=== PATIENT | female | born 2000 | race Caucasian/White ===

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

== ENCOUNTER 2019-11-12 18:11 | Inpatient (IN) ==
[2019-11-12] MEDS ORDERED: PENICILLIN G POTASSIUM 5 MILLIONUNT in DEXTROSE 5 % IN WATER 100 ML IV ONE ×2 (18:13)
[2019-11-12] MEDS ORDERED: RINGER'S SOLUTION,LACTATED 1,000 ML IV ONE (19:25)
[2019-11-12] MEDS ORDERED: RINGER'S SOLUTION,LACTATED 1,000 ML IV PRN (19:25)
[2019-11-12] MEDS ORDERED: DEXTROSE 5%-LACTATED RINGERS 1,000 ML IV PRN (19:25)
[2019-11-12] MEDS ORDERED: ONDANSETRON 4 MG TAB.RAPDIS PO PRN (19:25)
[2019-11-12] MEDS ORDERED: OXYTOCIN/DEXTROSE 5%-WATER 30 UNITS/500 ML BAG IV ONE (19:25)
[2019-11-12 21:05] LABS: Cocaine Ur Negative (NEGATIVE); Urine Barbiturate Negative (NEGATIVE); Urine Benzodiazepines Negative (NEGATIVE); Urine Opiates Negative (NEGATIVE); Urine PCP Negative (NEGATIVE); Urine THC Negative (NEGATIVE)
[2019-11-12] MEDS ORDERED: BUPIVACAINE HCL/0.9 % NACL/PF 250 ML EP PRN (22:07)
[2019-11-12] MEDS ORDERED: NALOXONE HCL 1 MG/1 ML SYRG IV PRN (22:07)
[2019-11-12] MEDS ORDERED: ONDANSETRON HCL/PF 2 MG/ML VIAL IV PRN (22:07)
[2019-11-12] MEDS ORDERED: BUPIVACAINE HCL/PF 30 ML VIAL EP SCH (22:15)
--- NOTE | 2019-11-12 22:50 | ANES ---
Anesthesia Pre Procedure Eval Vitals/Labs: Last Vital Signs Temp 37.3 C 11/12/19 21:01 Pulse 84 11/12/19 21:01 Resp 18 11/12/19 21:01 BP 121/71 11/12/19 21:01 Pulse Ox 98 11/12/19 21:01 HOME MEDICATIONS prenat.vits,zoie,[id number] 1 tab PO DAILY 05/04/19 [Last Taken 11/12/19] acetaminophen 325 mg tablet 650 mg PO Q6H PRN tab 08/10/19 [Last Taken 11/12/19] Allergies/Adverse Reactions: Allergies Allergy/AdvReac Type Severity Reaction Status Date / Time No Known Allergies Allergy Verified 11/12/19 18:36 - Planned Procedure Planned Procedure: LABOR Medication List Reviewed:: Yes Allergies Verified: Yes Medical History (Last Reviewed 11/12/19 @ 18:58 by Janie Woodall RN) Anemia Onset Date: 08/10/19 Tattoos Onset Date: Unknown Body piercing Onset Date: Unknown Reactive airway disease Onset Date: Unknown Asthma Onset Date: Unknown sports induced Surgical History (Last Reviewed 11/12/19 @ 18:58 by Janie Woodall, RN) No pertinent past surgical history Family History (Last Reviewed 11/12/19 @ 18:58 by Janie Woodall RN) Mother Environmental allergies - Anesthesia Assessment and Plan ASA Class: PS, II Anesthesia Type Plan: Epidural
--- NOTE | 2019-11-12 23:09 | ANES ---
Post Anesthesia Assessment - Vital Signs Vitals: Last Vital Signs Temp 37.2 C 11/12/19 23:07 Pulse 89 11/12/19 23:07 Resp 18 11/12/19 23:07 BP 128/69 11/12/19 23:07 Pulse Ox 97 11/12/19 23:07 Airway Patency: Normal - Mental Status Level Of Consciousness: Awake - N/V Assessment Nausea/Vomiting Presence: None Dehydration:: No
--- NOTE | 2019-11-12 23:09 | ANES ---
Anesthesia Procedure Note Procedure Note: ANESTHESIA PROCEDURE NOTE Date of Procedure: 11/12/2019. Time of procedure: 2350. Performed by: Abe Urbina CRNA Soaker Hides: None. Preprocedure diagnosis: Active labor. Post procedure diagnosis: Same. Procedure: Insertion of labor epidural. Indications: The patient is a 19-year-old female in active labor requesting labor epidural for pain management. Findings: See below. Details of the procedure: The patient was placed in a sitting position. DuraPrep as well as Betadine swabs X3 was applied to the patient's back. Patient was then draped in a sterile fashion. Lidocaine 1% was infiltrated to the skin and subcutaneous tissues at the level of the L3-4 interspace. The epidural space was identified using a 18-gauge Tuohy needle with [id number] technique. Epidural catheter was inserted to a depth of 10 centimeters at skin. Negative test dose was elicited using 3 mL of 1.5% preservative-free lidocaine plus epinephrine 1 200,000. The epidural catheter was then taped and secured in place. A loading dose of 8 mL of 0.25% preservative-free bupivacaine was administered to the epidural catheter after negative aspiration for blood and CSF. EBL: Minimal. Fluids: N/A. Specimen: N/A. Post procedure condition: The patient tolerated the procedure well. No complications were noted. Thank you for this consultation. Abe Urbina CRNA
[2019-11-12] MEDS: PENICILLIN G POTASSIUM 2.5 MILLIONUNT in DEXTROSE 5 % IN WATER 100 ML IV SCH ×2 (23:15)
--- NOTE | 2019-11-13 00:02 | HP ---
Chief Complaint - Chief Complaint Date of Service: 11/12/19 Time of Service: 23:52 Chief Complaint: contractions History of Present Illness: 19 yo at 39 6/7 weeks presents to L&D complaining of contactions and questionable LOF. Membranes intact upon arrival per nurse. This complicated by asthma and anemia. Rh positive Rubella non-immune GBS positive Medical History (Last Reviewed 11/12/19 @ 23:56 by Cornelius Rudd DO) Anemia Onset Date: 08/10/19 Tattoos Onset Date: Unknown Body piercing Onset Date: Unknown Reactive airway disease Onset Date: Unknown Asthma Onset Date: Unknown sports induced Surgical History: Surgical History (Last Reviewed 11/12/19 @ 23:56 by Cornelius Rudd DO) No pertinent past surgical history Family History: Family History (Last Reviewed 11/12/19 @ 23:56 by Cornelius Rudd DO) Mother Environmental allergies Social History: (Last Reviewed 11/12/19 @ 23:56 by Cornelius Rudd DO) Social History: adopted: No care home: No Marital status: Single household members: significant other, children number of children: 1 current occupational status: employed current occupation: Automotive current occupational exposures/hazards: No Highest education level completed: high school graduate Sexually Active: Yes Service: No Tobacco: Smoking Status: Never smoker Alcohol: alcohol intake: never Substance Use: substance use type: does not use Dietary Habits: caffeine: Yes caffeine comment: 4 Type: carbonated beverages Exercise: frequency: does not exercise Karla/Mu-Ism: agree to transfusion: Yes Review Of Systems (GEN) - Review of Systems Generalized/Overall Review: Present: No Symptoms Reported EENTM: Present: No Symptoms Reported Respiratory: Present: No Symptoms Reported Cardiac: Present: No Symptoms Reported Abdominal: Present: Other - contractions Genitourinary: Present: No Symptoms Reported Musculoskeletal: Present: No Symptoms Reported Neurological: Present: No Symptoms Reported Skin: Present: No Symptoms Reported Endocrine: Present: No Symptoms Reported Immunizations: IMMUNIZATION HX Immunizations Up to Date Yes History of Influenza Vaccine No Hx Pneumococcal Vaccination No Allergies/Adverse Reactions: Allergies Allergy/AdvReac Type Severity Reaction Status Date / Time No Known Allergies Allergy Verified 11/12/19 18:36 Home Medications: HOME MEDICATIONS prenat.vits,zoie,plw-gbhd-tcvfu 1 tab PO DAILY 05/04/19 [Last Taken 11/12/19] acetaminophen 325 mg tablet 650 mg PO Q6H PRN tab 08/10/19 [Last Taken 11/12/19] Exam - Exam Vital Signs: Vital Signs - Last Taken Temp 37.2 C 11/12/19 23:07 Pulse 89 11/12/19 23:07 Resp 18 11/12/19 23:07 BP 128/69 11/12/19 23:07 Pulse Ox 97 11/12/19 23:07 Constitutional: Present: Alert, Oriented x3, Cooperative ENT Exam: Present: hearing grossly normal Neck: Present: non-tender. Absent: thyromegaly Breasts: Present: Exam deferred Respiratory: Present: lungs clear, no respiratory distress Cardiovascular/Chest: Present: regular rate, rhythm Abdomen: Present: soft, nontender, no rebound tenderness, other - gravid /Rectal: Present: Other - cervix 4/80/-1 Extremity: Present: non-tender, no pedal edema, no calf tenderness Skin Exam: Present: normal color, warm/dry, no cyanosis Neurologic: Present: alert, normal mood/affect, oriented x 3 Appearance: Present: appropriate appearance, appropriate insight Eye contact: Present: cooperative, good eye contact Thoughts: Present: normal mood /affect Diagnostic Studies: Laboratory Results Urine Opiates Screen Negative (NEGATIVE) 11/12/19 19:25 Barbiturate Screen Negative (NEGATIVE) 11/12/19 19:25 Ur Phencyclidine Scrn Negative (NEGATIVE) 11/12/19 19:25 Urine Amphetamine Negative (NEGATIVE) 11/12/19 19:25 U Benzodiazepines Scrn Negative (NEGATIVE) 11/12/19 19:25 Urine Cocaine Screen Negative (NEGATIVE) 11/12/19 19:25 Urine Marijuana (THC) Negative (NEGATIVE) 11/12/19 19:25 Assessment/Plan - Assessment/Plan (1) Labor established Assessment: Admit for routine management of labor. Epidural PRN. IV PCN per GBS protocol. Problem: Acute (2) Group B streptococcal carriage complicating Problem: Acute
--- NOTE | 2019-11-13 00:06 | PN ---
Progess Note - Interim Date: 11/13/19 Time: 00:03 Narrative: 11/13/19 00:03 Patient comfortable with epidural Vital signs stable. Status post second dose of IV penicillin FHT: 140 baseline, reassuring contractions q 2-3 min Cervix: 8/90/-1, AROM-clear at 2344 Impression: Intrauterine at 40 weeks in labor Plan: Anticipate normal spontaneous vaginal delivery soon.
[2019-11-13] MEDS: PENICILLIN G POTASSIUM 2.5 MILLIONUNT in DEXTROSE 5 % IN WATER 100 ML IV SCH ×2 (02:30)
--- NOTE | 2019-11-13 04:15 | OR ---
Operative Report - Dictated Report Narrative: Spontaneous vaginal delivery of vigorously crying viable male at 0347 on 11/13/2019 with Apgars 8 and 9, weighing 3697 g in SUZETTE position. Short umbilical cord noted. Cord clamping delayed approximately 30 seconds Placenta delivered complete, intact, with three vessel cord Estimated blood loss: Less than 50 ml Anesthesia: Epidural Lacerations: 3 cm second-degree vaginal laceration repaired with 3-0 Vicryl Rapide. History for MU History for Definition: * The number of deliveries resulting in a live the patient experienced prior to current hospitalization * The previous delivery of live twins or any live multiple gestation is considered one live event. *If primagravida or nulliparous is documented select zero for the number of previous live births. Live Events: Live Events: 1
[2019-11-13] MEDS ORDERED: GLYCERIN/WITCH HAZEL LEAF 40 APPL BOX TP PRN (04:16)
[2019-11-13] MEDS ORDERED: IBUPROFEN 800 MG TABLET PO PRN (04:16)
[2019-11-13] MEDS ORDERED: HYDROCORTISONE 30 APPL TUBE TP PRN (04:16)
[2019-11-13] MEDS ORDERED: oxyCODONE HCL/ACETAMINOPHEN 1 TAB TABLET PO PRN (04:16)
[2019-11-13] MEDS ORDERED: SENNOSIDES 8.6 MG TABLET PO PRN (04:16)
[2019-11-13] MEDS ORDERED: BISACODYL 10 MG SUPP.RECT RC PRN (04:16)
[2019-11-13] MEDS ORDERED: OXYTOCIN/DEXTROSE 5%-WATER 30 UNITS/500 ML BAG IV ONE (04:16)
[2019-11-13] MEDS ORDERED: ACETAMINOPHEN 325 MG TABLET PO PRN (04:16)
[2019-11-13] MEDS ORDERED: BENZOCAINE/MENTHOL 81 SPRAY CAN TP PRN (04:16)
[2019-11-13] MEDS ORDERED: ONDANSETRON HCL/PF 2 MG/ML VIAL IV ONE (04:26)
[2019-11-13] MEDS: IBUPROFEN 800 MG TABLET PO PRN ×2 (05:00→14:10)
[2019-11-13] MEDS: PRENATAL VITS96/IRON FUM/FOLIC 1 TAB TABLET PO SCH (08:07)
[2019-11-13] MEDS: DOCUSATE SODIUM 100 MG CAPSULE PO SCH ×2 (08:07→21:46)
[2019-11-14 08:34] VITALS: BP 121/72
[2019-11-14] MEDS: DOCUSATE SODIUM 100 MG CAPSULE PO SCH (09:23)
[2019-11-14] MEDS: PRENATAL VITS96/IRON FUM/FOLIC 1 TAB TABLET PO SCH (09:23)
--- NOTE | 2019-11-14 12:44 | PN ---
Subjective - Date and Time Seen Date: 11/14/19 Time: 12:43 Objective - Vitals Vitals: Last Vital Signs Temp 37.1 C 11/14/19 08:30 Pulse 73 11/14/19 08:30 Resp 16 11/14/19 08:30 BP 121/72 11/14/19 08:30 Pulse Ox 97 11/14/19 08:30 Patient denies complaints. Breast-feeding. Lochia wnl abdomen - soft, nontender Uterus -firm, at umbilicus - 1 no calf tenderness Impression: day #1 - s/p spontaneous vaginal delivery. Desires early discharge. Plan: Continue routine care. Routine discharge instructions given. Early follow-up for baby since mother was GBS carrier. Cauti Physician Documentation - Urinary Catheter Management Urethral (Muñoz) Date of Insertion: 11/12/19 Time of Insertion: 23:25 Date of Removal: 11/13/19 Time of Removal: 03:40 Assessment/Plan - Problems/Diagnosis (1) Labor established Problem: Acute (2) Group B streptococcal carriage complicating Problem: Acute
== END 2019-11-14 19:23 | disposition home or self-care (01) | DRG 806 ==
LOC: OB 18:11
PROVIDERS: ADMIT Obstetrics & Gynecology; ATTEND Obstetrics & Gynecology
CPT/HCPCS: 59025; 80307; J2405